=== PATIENT | male | born 1955 ===

== ENCOUNTER → 2019-01-17 14:23 | Outpatient (ROUT) | payer OTHER, SELFPAY ==
[2019-01-17 15:34] LABS: Prostate Specific Antigen 0.768 ng/mL (0.10-4.00)
== END ==
PROVIDERS: Visit Provider Internal Medicine
DX: Z00.00 Encounter for general adult medical examination without abnormal findings (principal); I10 Essential (primary) hypertension
CPT/HCPCS: 84153